=== PATIENT | male | born 1955 | race Caucasian/White ===

== ENCOUNTER 2018-07-30 07:11 | Day surgery (SDC) | payer BC ==
[~2018-07-30 07:11] MED LIST: Midazolam 1 MG/ML 2 ML SDV ONE; fentaNYL 100 MCG/2 ML SDV ONE
[2018-07-30] MEDS ORDERED: fentaNYL 100 MCG/2 ML SDV IV ONE ×3 (07:12→08:48)
[2018-07-30] MEDS ORDERED: Midazolam 1 MG/ML 2 ML SDV IV ONE ×5 (07:12→08:51)
[2018-07-30] MEDS ORDERED: Dextrose 5%-0.45% NaCl 1,000 ML IV SCH (07:45)
--- NOTE | 2018-07-30 09:33 | OR ---
DATE: 07/30/2018 PREOPERATIVE DIAGNOSIS: Screening colonoscopy. POSTOPERATIVE DIAGNOSIS: Screening colonoscopy. PROCEDURE: Total colonoscopy. ANESTHESIA: Conscious sedation with IV Versed and fentanyl. SPECIMEN: None. OPERATIVE FINDINGS: Normal colonoscopy. RECOMMENDATION: Followup screening colonoscopy in 10 years or sooner for symptoms. INDICATION FOR PROCEDURE: This 63-year-old male presents for screening colonoscopy. PROCEDURE IN DETAIL: After adequate preparation, a colonoscope was inserted into the rectum. This was easily passed all the way to the cecum. Confirmation of the cecum was made by visualization of the ileocecal valve and palpation in the right lower quadrant. I could also see the appendiceal opening. The bowel prep was very good on withdrawal of the scope. No abnormalities were noted. Anal and rectal examinations are also normal. Air was suctioned from the colon, and the scope was removed. [facility] /[id number]
== END 2018-07-30 10:45 | disposition home or self-care (01) ==
LOC: DL.ENDO 07:11
PROVIDERS: ATTEND Surgery
DX: Z12.11 Encounter for screening for malignant neoplasm of colon (principal); Z98.890 Other specified postprocedural states; D68.51 Activated protein C resistance; Z79.82 Long term (current) use of aspirin
CPT/HCPCS: 45378; J2250; J3010; J7042